=== PATIENT | male | born 1960 | race Caucasian/White ===

== ENCOUNTER → 2016-11-22 | Outpatient (CLI) | payer OTHER ==
[~2016-11-22] MED LIST: ACET-703 PO; APIX5TAB PO; ATOR40TA16 PO; ATOR40TA49 PO; EXTR500C PO; FISHCAP4 PO; LISI-360 PO; LISI10TA3 PO; OMEG5CAP; VITA-13; VITA1000 PO
[2016-11-22 10:19] LABS: HEMATOCRIT 46.1 % (39.0-51.0); MEAN CELL VOLUME 93.8 FL (80.0-100.0); MEAN CORPUSCULAR HEMOGLOBIN 32.7 PG (27.0-34.0); MEAN CORPUSCULAR HGB CONC 34.8 % (32.0-36.0); PLATELET COUNT 180 TH/MM3 (150-450); RED BLOOD COUNT 4.92 MIL/MM3 (4.50-5.90); RED CELL DISTRIBUTION WIDTH 13.5 % (11.6-17.2); REVIEW FLAG FINAL; WHITE BLOOD COUNT 8.1 TH/MM3 (4.0-11.0)
[2016-11-22 10:58] LABS: ALKALINE PHOSPHATASE 78 U/L (45-117); ALT (GPT) 34 U/L (12-78); ANION GAP 7 MEQ/L (5-15); AST (GOT) 19 U/L (15-37); BICARBONATE 28.8 MEQ/L (21.0-32.0); BLOOD UREA NITROGEN 13 MG/DL (7-18); CHLORIDE 105 MEQ/L (98-107); GLOMERULAR FILTRATION RATE 57 ML/MIN (>89); GLUCOSE,FASTING 89 MG/DL (74-99); HDL CHOLESTEROL 31.5 MG/DL (40.0-60.0); LDL CHOLESTEROL 98 MG/DL (0-99); POTASSIUM 3.9 MEQ/L (3.5-5.1); SODIUM (NA) 141 MEQ/L (136-145); TOTAL BILIRUBIN ADULT 0.9 MG/DL (0.2-1.0)
== END ==
LOC: CLAB 09:54
PROVIDERS: ATTEND Physician Assistant Medical
DX: E78.5 Hyperlipidemia, unspecified (principal); I10 Essential (primary) hypertension; D68.59 Other primary thrombophilia
CPT/HCPCS: 36415; 80053; 80061; 84443; 85027

== ENCOUNTER 2017-01-10 11:15 | Emergency (ER) | payer SELFPAY ==
[~2017-01-10 11:15] MED LIST changes: -ATOR40TA49 PO; -EXTR500C PO; -LISI-360 PO; -OMEG5CAP; -VITA-13
[2017-01-10 11:17] VITALS: BP 147/95; PULSE 90; RESP 16; TEMP 97.9; O2SAT 99
--- NOTE | 2017-01-10 11:23 | PD ---
Physical Exam Date Seen by Provider: Jan 10, 2017 Time Seen by Provider: 11:20 Narrative 56 yo male that presents to the ED for evaluation of medication refill for Eliquis. Ran out for about a month. Uses it for DVTs. Used to see patient assistance, pharmacy recommended he comes here. No other complains. Vitals sign stable. Patient awaiting bed placement. Data Data Last Documented VS Vital Signs Date Time Temp Pulse Resp B/P Pulse Ox O2 Delivery O2 Flow Rate FiO2 01/10/17 11:17 97.9 90 16 147/95 99 Room Air [facility] Medical Record Reviewed: Yes Supervised Visit with SCOTT: No Ketan Parson Jan 10, 2017 11:23
[2017-01-10] MEDS ORDERED: APIX5TAB PO (11:39)
--- NOTE | 2017-01-10 11:40 | PD ---
HPI Chief Complaint: Medication Refill Request Time Seen by Provider: 11:31 Travel History International Travel<30 days: No Contact w/Intl Traveler<30days: No Traveled to known affect area: No History of Present Illness HPI 56-year-old male presents to the emergency department requesting medication refill on Eliquis for history of DVT in his right leg. He has not taken his medication for one month and was not told to stop it. Patient has no medical complaints. He denies leg pain, leg edema, chest pain, shortness of breath, paresthesias or loss of sensation to extremities. His last primary care provider was Marilia Arnold. He does not have an established primary care provider at this time. No other medical complaints. No other modifying factors or associated signs and symptoms. PFSH Past Medical History Hx Anticoagulant Therapy: Yes (ELIQUIS) Anemia: Yes Arthritis: No Asthma: No Autoimmune Disease: No Anxiety: Yes Heart Rhythm Problems: No Cancer: No Cardiovascular Problems: Yes (DVT) Cerebral Palsy: No High Cholesterol: Yes Chest Pain: No Congestive Heart Failure: No COPD: No Cerebrovascular Accident: No Diabetes: No Diminished Hearing: No Deep Vein Thrombosis: Yes Endocrine: No Gastrointestinal Disorders: No GERD: No Glaucoma: No Headaches: No Hepatitis: No Hiatal Hernia: No Hypertension: Yes Kidney Stones: No Musculoskeletal: No Neurologic: No Psychiatric: No Reproductive: No Respiratory: No Immunizations Current: No Myocardial Infarction: No Renal Failure: No Seizures: Yes (NEW ONSET MAY 2009) Sleep Apnea: No Thyroid Disease: No Ulcer: No PNEUMOCCOCAL Vaccine (Year): 2 Past Surgical History AICD: No Pacemaker: No Other Surgery: No Social History Alcohol Use: Yes (1-2 mo) Tobacco Use: No Substance Use: No Allergies-Medications (Allergen,Severity, Reaction): Coded Allergies: No Known Allergies (Verified , 12/06/16) Reported Meds & Prescriptions Reported Meds & Active Scripts Active Eliquis (Apixaban) 5 Mg Tab 5 Mg PO BID Lisinopril 10 Mg Tab 10 Mg PO DAILY Atorvastatin (Atorvastatin Calcium) 40 Mg Tab 40 Mg PO HS Eliquis (Apixaban) 5 Mg Tab 5 Mg PO BID Reported Vitamin D-1000 (Cholecalciferol) 1,000 Unit Tab 1,000 Units PO DAILY Tylenol Extra Strength (Acetaminophen) 500 Mg Tab 1,000 Mg PO ONCE Fish Oil + D3 (Fish Oil-Cholecalciferol) 1,200-1,000 Mg-Unit Cap 2 Cap PO DAILY Review of Systems Except as stated in HPI: all other systems reviewed are Neg Physical Exam Narrative GENERAL: Well-nourished, well-developed male patient, in no acute distress SKIN: Warm and dry. HEAD: Atraumatic. Normocephalic. EYES: Pupils equal and round. No scleral icterus. No injection or drainage. ENT: Mucosa pink and moist. Airway patent. NECK: Trachea midline. CARDIOVASCULAR: Regular rate. RESPIRATORY: No accessory muscle use. GASTROINTESTINAL: Rounded. MUSCULOSKELETAL: No obvious deformities. No clubbing. No cyanosis. No edema. NEUROLOGICAL: Awake and alert. Oriented 3. No obvious cranial nerve deficits. Motor grossly within normal limits. Normal speech. PSYCHIATRIC: Appropriate mood and affect; insight and judgment normal. Data Data Last Documented VS Vital Signs Date Time Temp Pulse Resp B/P Pulse Ox O2 Delivery O2 Flow Rate FiO2 01/10/17 11:17 97.9 90 16 147/95 99 Room Air MDM Medical Decision Making Medical Screen Exam Complete: Yes Emergency Medical Condition: Yes Medical Record Reviewed: Yes Differential Diagnosis Medication refill, medical clearance, malingering Narrative Course 56-year-old male requesting medication refill on Eliquis for history of DVT. He has not taken the medication for one month. He does not have an established primary care provider. He says he lost his patient assistance. Eliquis prescribed for home. Patient provided an information sheet for [facility]. Patient verbalizes understanding and agreement with treatment plan. Patient is medically cleared and stable for discharge. Discussed reasons to return to the emergency department. Instructed patient to follow up with primary care provider. Patient agrees with treatment plan. The patients vital signs are stable and the patient is stable for outpatient follow-up and treatment. Patient discharged home, stable and in no acute distress. Diagnosis Primary Impression: Medication refill Referrals: Primary Care Physician Patient Instructions: General Instructions, Medication Refill, ED Additional Instructions: Take medication as prescribed Follow-up with primary care provider Return to the emergency department immediately with worsening of symptoms Med/Other Pt SpecificInfo: Prescription(s) given Scripts Apixaban (Eliquis)5 Mg Tab5 Mg PO BID #60 TAB Ref 0 Prov:Agueda Bustamante 01/10/17 Disposition: 01 DISCHARGE HOME Condition: Stable Agueda Bustamante Jan 10, 2017 11:39
== END 2017-01-10 12:33 | disposition home or self-care (01) ==
LOC: NEPK 11:15
DX: I10 Essential (primary) hypertension (principal); E78.00 Pure hypercholesterolemia, unspecified; Z76.0 Encounter for issue of repeat prescription; Z79.01 Long term (current) use of anticoagulants; Z86.718 Personal history of other venous thrombosis and embolism; Z86.2 Personal history of diseases of the blood and blood-forming organs and certain disorders involving the immune mechanism; Z86.59 Personal history of other mental and behavioral disorders; Z86.79 Personal history of other diseases of the circulatory system; Z86.69 Personal history of other diseases of the nervous system and sense organs
CPT/HCPCS: 99281

== ENCOUNTER 2017-08-21 22:17 | Emergency (ER) | payer SELFPAY ==
[~2017-08-21] VITALS: Ht 165.1 cm; Wt 84.0 kg
[2017-08-21 22:28] VITALS: BP 160/97; PULSE 119; RESP 20; TEMP 99.3; O2SAT 93
[2017-08-21] MEDS ORDERED: SODIUM CHLOR 0.9% 1000 ML INJ 1,000 ML IV SCH (22:50)
--- NOTE | 2017-08-21 22:53 | PD ---
HPI Chief Complaint: Seizure Time Seen by Provider: 22:50 Travel History International Travel<30 days: No Contact w/Intl Traveler<30days: No Traveled to known affect area: No History of Present Illness HPI 57-year-old male came to the emergency room with history of being found unresponsive on the floor. His sister is here with him. She does not live with him. Her mother lives with the patient. Mom called her to let her know that he was found unresponsive and sister called 911. Patient has history of seizure disorder but last seizure episode was many years ago. Patient is currently not taking any medications since he does not have insurance or primary care. He also has history of DVT and is supposed to be on blood thinners. He has not taking any of his medications in more than one month. Patient tells me that he has some headache currently. He thinks he may have had a seizure but he is not certain. Patient seems to have limited IQ. Patient denies doing any street drugs. He says he drinks alcohol once or twice a month. Last time he drank was 2 weeks ago. Vital signs are relatively stable. Patient currently is awake and answering questions. [facility] Past Medical History Narrative Medical list of his past medical, surgical, social and family history is reviewed from the nursing note. Hx Anticoagulant Therapy: Yes (ELIQUIS) Anemia: Yes Arthritis: No Asthma: No Autoimmune Disease: No Anxiety: Yes Heart Rhythm Problems: No Cancer: No Cardiovascular Problems: Yes (R LEG DVT X2 2005 AND 2008) Cerebral Palsy: No High Cholesterol: Yes Chest Pain: No Congestive Heart Failure: No COPD: No Cerebrovascular Accident: No Diabetes: No Diminished Hearing: No Deep Vein Thrombosis: Yes Endocrine: No Gastrointestinal Disorders: No GERD: No Glaucoma: No Headaches: No Hepatitis: No Hiatal Hernia: No Hypertension: Yes Kidney Stones: No Musculoskeletal: No Neurologic: No Psychiatric: No Reproductive: No Respiratory: No Immunizations Current: No Myocardial Infarction: No Renal Failure: No Seizures: Yes (NEW ONSET MAY 2009) Sleep Apnea: No Thyroid Disease: No Ulcer: No Tetanus Vaccination: Unknown Influenza Vaccination: No PNEUMOCCOCAL Vaccine (Year): 2 Past Surgical History Surgical History: No Previous Surgery AICD: No Pacemaker: No Other Surgery: No Social History Alcohol Use: Yes (OCCASIONALLY 1-2 PER MONTH) Tobacco Use: No Substance Use: No Allergies-Medications (Allergen,Severity, Reaction): Coded Allergies: No Known Allergies (Verified Adverse Reaction, Unknown, 08/21/17) Comments No known drug allergies. Reported Meds & Prescriptions Reported Meds & Active Scripts Active Lopressor (Metoprolol Tartrate) 50 Mg Tab 50 Mg PO DAILY Keppra (Levetiracetam) 500 Mg Tab 500 Mg PO BID Eliquis (Apixaban) 5 Mg Tab 5 Mg PO BID Lisinopril 10 Mg Tab 10 Mg PO DAILY Atorvastatin (Atorvastatin Calcium) 40 Mg Tab 40 Mg PO HS Reported Vitamin D-1000 (Cholecalciferol) 1,000 Unit Tab 1,000 Units PO DAILY Fish Oil + D3 (Fish Oil-Cholecalciferol) 1,200-1,000 Mg-Unit Cap 2 Cap PO DAILY Narrative Medication List of his home medications reviewed from the nursing note. Review of Systems Except as stated in HPI: all other systems reviewed are Neg Neurologic: Positive: Headache Physical Exam Narrative GENERAL: Awake, alert, no obvious distress SKIN: Focused skin assessment warm/dry. HEAD: Atraumatic. Normocephalic. EYES: Pupils equal and round. No scleral icterus. No injection or drainage. ENT: No nasal bleeding or discharge. Mucous membranes pink and moist. NECK: Trachea midline. No JVD. CARDIOVASCULAR: Regular rate and rhythm. No murmur appreciated. RESPIRATORY: No accessory muscle use. Clear to auscultation. Breath sounds equal bilaterally. GASTROINTESTINAL: Abdomen soft, non-tender, nondistended. Hepatic and splenic margins not palpable. MUSCULOSKELETAL: No obvious deformities. No clubbing. No cyanosis. No edema. NEUROLOGICAL: Awake and alert. No obvious cranial nerve deficits. Motor grossly within normal limits. Normal speech. PSYCHIATRIC: Appropriate mood and affect; insight and judgment normal. Data Data Last Documented VS Orders Orders Electrocardiogram (08/21/17 22:50) Complete Blood Count With Diff (08/21/17 22:50) Comprehensive Metabolic Panel (08/21/17 22:50) Creatine Kinase (Cpk) (08/21/17 22:50) Prothrombin Time / Inr (Pt) (08/21/17 22:50) Troponin I (08/21/17 22:50) Thyroid Stimulating Hormone (08/21/17 22:50) Ct Brain W/O Iv Contrast(Rout) (08/21/17 22:50) Blood Glucose (08/21/17 22:50) Ecg Monitoring (08/21/17 22:50) Iv Access Insert/Monitor (08/21/17 22:50) Oximetry (08/21/17 22:50) Sodium Chloride 0.9% Flush (Ns Flush) (08/21/17 23:00) Sodium Chlor 0.9% 1000 Ml Inj (Ns 1000 M (08/21/17 22:50) Alcohol (Ethanol) (08/21/17 22:50) ^ Seizure Precautions (08/21/17 22:55) Levetiracetam (Keppra) (08/22/17 00:00) Metoprolol Tartrate (Lopressor) (08/22/17 00:15) Ed Discharge Order (08/22/17 00:09) Labs Laboratory Tests Test 08/21/17 22:55 White Blood Count 13.0 TH/MM3 Red Blood Count 4.82 MIL/MM3 Hemoglobin 15.8 GM/DL Hematocrit 45.7 % Mean Corpuscular Volume 94.9 FL Mean Corpuscular Hemoglobin 32.9 PG Mean Corpuscular Hemoglobin Concent 34.7 % Red Cell Distribution Width 12.8 % Platelet Count 190 TH/MM3 Mean Platelet Volume 7.5 FL Neutrophils (%) (Auto) 72.0 % Lymphocytes (%) (Auto) 19.0 % Monocytes (%) (Auto) 6.8 % Eosinophils (%) (Auto) 1.2 % Basophils (%) (Auto) 1.0 % Neutrophils # (Auto) 9.3 TH/MM3 Lymphocytes # (Auto) 2.5 TH/MM3 Monocytes # (Auto) 0.9 TH/MM3 Eosinophils # (Auto) 0.2 TH/MM3 Basophils # (Auto) 0.1 TH/MM3 CBC Comment DIFF FINAL Differential Comment Prothrombin Time 10.8 SEC Prothromb Time International Ratio 1.1 RATIO Blood Urea Nitrogen 20 MG/DL Creatinine 1.63 MG/DL Random Glucose 91 MG/DL Total Protein 7.5 GM/DL Albumin 3.5 GM/DL Calcium Level 9.2 MG/DL Alkaline Phosphatase 81 U/L Aspartate Amino Transf (AST/SGOT) 14 U/L Alanine Aminotransferase (ALT/SGPT) 22 U/L Total Bilirubin 0.5 MG/DL Sodium Level 138 MEQ/L Potassium Level 3.4 MEQ/L Chloride Level 102 MEQ/L Carbon Dioxide Level 26.7 MEQ/L Anion Gap 9 MEQ/L Estimat Glomerular Filtration Rate 44 ML/MIN Total Creatine Kinase 210 U/L Troponin I LESS THAN 0.02 NG/ML Thyroid Stimulating Hormone 3rd Gen 1.440 uIU/ML Ethyl Alcohol Level LESS THAN 3 MG/DL MDM Medical Decision Making Medical Screen Exam Complete: Yes Emergency Medical Condition: Yes Medical Record Reviewed: Yes Interpretation(s) Twelve-lead EKG was reviewed by me. Normal sinus rhythm, normal axis, tachycardia, first-degree AV block, right bundle branch block, low voltage. Heart rate of 108 bpm. Differential Diagnosis Seizure, syncopal episode, intracranial bleed, electrolyte abnormality Narrative Course 12:02 AM blood test results of back. Patient has slight leukocytosis. He has mild renal insufficiency. Rest of his blood test results are within acceptable limits. CT scan of his head was suggestive of encephalomalacia but otherwise no acute changes. I've given him a dose of by mouth Keppra and I will discharge him home on that. Procedures EKG Prior to Arrival: No Diagnosis Primary Impression: seizure versus syncope Additional Impressions: Seizure disorder seizure disorder Renal insufficiency Referrals: Primary Care Physician Additional Instructions: Please return to the ER if condition worsens or any other new concerns. Otherwise feels the prescription and start taking the medication as per the direction. Follow-up with primary care. He should not be driving until you have clearance from your primary care. Med/Other Pt SpecificInfo: Prescription(s) given Scripts Metoprolol Tartrate (Lopressor) 50 Mg Tab 50 MG PO DAILY, #30 TAB 0 Refills Prov: Berto Darby MD 08/22/17 Levetiracetam (Keppra) 500 Mg Tab 500 MG PO BID for Control Seizures, #60 TAB 0 Refills Prov: Berto Darby MD 08/22/17 Disposition: DISCHARGE HOME Condition: Stable Berto Darby MD Aug 21, 2017 22:53
[2017-08-21] MEDS ORDERED: SODIUM CHLORIDE 0.9% FLUSH 10 ML FLUSH IV FLUSH PRN (23:00)
[2017-08-21 23:18] LABS: AUTOMATED NEUTROPHIL # 9.3 TH/MM3 (1.8-7.7); BASOPHIL # 0.1 TH/MM3 (0-0.2); EOSINOPHIL # 0.2 TH/MM3 (0-0.4); EOSINOPHIL % 1.2 % (0.0-4.0); HEMATOCRIT 45.7 % (39.0-51.0); HEMO FLAGS DIFF FINAL; LYMPHOCYTE # 2.5 TH/MM3 (1.0-4.8); MEAN CELL VOLUME 94.9 FL (80.0-100.0); MEAN CORPUSCULAR HEMOGLOBIN 32.9 PG (27.0-34.0); MEAN CORPUSCULAR HGB CONC 34.7 % (32.0-36.0); MONO % 6.8 % (0.0-8.0); PLATELET COUNT 190 TH/MM3 (150-450); RED BLOOD COUNT 4.82 MIL/MM3 (4.50-5.90); RED CELL DISTRIBUTION WIDTH 12.8 % (11.6-17.2)
[2017-08-21 23:29] LABS: INTERNATIONAL NORMALIZED RATIO 1.1 RATIO; PROTHROMBIN TIME - PATIENT 10.8 SEC (9.8-11.6)
[2017-08-21 23:33] LABS: ANION GAP 9 MEQ/L (5-15); AST (GOT) 14 U/L (15-37); BICARBONATE 26.7 MEQ/L (21.0-32.0); BLOOD UREA NITROGEN 20 MG/DL (7-18); CHLORIDE 102 MEQ/L (98-107); GLOMERULAR FILTRATION RATE 44 ML/MIN (>89); POTASSIUM 3.4 MEQ/L (3.5-5.1); SODIUM (NA) 138 MEQ/L (136-145)
[2017-08-21 23:34] LABS: ALT (GPT) 22 U/L (12-78)
[2017-08-21 23:44] LABS: ALKALINE PHOSPHATASE 81 U/L (45-117); CREATINE KINASE 210 U/L (39-308); TOTAL BILIRUBIN ADULT 0.5 MG/DL (0.2-1.0)
[2017-08-21 23:45] LABS: ALCOHOL LESS THAN 3 MG/DL (0-5)
--- NOTE | 2017-08-21 23:46 | RADRPT ---
EXAM DATE/TIME: 08/21/2017 23:37 [place] COMPARISON: No previous studies available for comparison. INDICATIONS : Altered mental status. Seizure. RADIATION DOSE: 40.46 CTDIvol (mGy) MEDICAL HISTORY : Hypertension. SURGICAL HISTORY : None. ENCOUNTER: Initial ACUITY: 1 day PAIN SCALE: 0/10 LOCATION: cranial TECHNIQUE: Multiple contiguous axial images were obtained of the head. Using automated exposure control and adj ustment of the mA and/or kV according to patient size, radiation dose was kept as low as reasonably a chievable to obtain optimal diagnostic quality images. DICOM format image data is available electro nically for review and comparison. FINDINGS: There is encephalomalacia identified in both frontal lobes, the bilateral parietal lobes, and right t emporal lobe. The osseous structures are intact. There are no signs of intracranial hemorrhage, mass, or acute infarct. CONCLUSION: Bilateral areas of encephalomalacia are identified without definite evidence for acute process. Gadiel Turner MD on August 21, 2017 at 23:44 Board Certified Radiologist. This report was verified electronically.
[2017-08-22] MEDS ORDERED: levETIRAcetam 500 MG TAB PO ONE
[2017-08-22] MEDS ORDERED: LEVE500 PO (00:04)
[2017-08-22] MEDS ORDERED: METO-309 PO (00:08)
[2017-08-22] MEDS ORDERED: METOPROLOL TARTRATE 50 MG TAB PO ONE (00:15)
[2017-08-22 00:16] VITALS: BP 153/95
[2017-08-22 00:34] VITALS: BP 153/95; PULSE 102; RESP 16; O2SAT 94
--- NOTE | 2017-08-22 07:58 | EKG ---
Date Performed: 08/21/2017 Time Performed: 23:20:06 PTAGE: 57 years EKG: SINUS TACHYCARDIA WITH FIRST DEGREE AV BLOCK POSSIBLE LEFT ATRIAL ENLARGEMENT INDETERMINATE AXIS LOW QRS VOLTAGE IN PRECORDIAL LEADS POSSIBLE RIGHT VENTRICULAR CONDUCTION DELAY NONSPECIFIC ST ELEVATION ABNORMAL ECG No significant change from prior electrocardiogram. PREVIOUS TRACING : 06/05/2009 16.24 DOCTOR: Gucci Robles Interpretating Date/Time 08/22/2017 07:56:14
== END 2017-08-22 01:26 | disposition home or self-care (01) ==
LOC: NEPC 22:17
DX: G40.909 Epilepsy, unspecified, not intractable, without status epilepticus (principal); R55 Syncope and collapse; N28.9 Disorder of kidney and ureter, unspecified; E78.00 Pure hypercholesterolemia, unspecified; I10 Essential (primary) hypertension; R94.31 Abnormal electrocardiogram [ECG] [EKG]; Z86.718 Personal history of other venous thrombosis and embolism; Z91.19 Patient's noncompliance with other medical treatment and regimen
CPT/HCPCS: 70450; 80053; 80307; 82550; 84443; 84484; 85025; 85610; 93005; 96360; 99285; J7030

== ENCOUNTER 2018-07-31 12:06 | Observation (INO) ==
[2018-07-31] MEDS ORDERED: Sod Chloride 0.9% Inj 1,000 ML IV.SIG ONE (12:12)
[2018-07-31 12:47] LABS: Baso # (Auto) 0.1 th/mm3 (0.0-0.2); Baso % (Auto) 0.8 % (0.0-2.0); Eos # (Auto) 0.3 th/mm3 (0.0-0.4); Hematocrit 49.8 % (39.0-51.0); Lymph # (Auto) 2.5 th/mm3 (1.0-4.8); Lymph % (Auto) 26.7 % (9.0-44.0); Mean Corpuscular HGB Conc 34.1 % (32.0-36.0); Mean Corpuscular Hemoglobin 33.5 pg (27.0-34.0); Mean Platelet Volume 7.6 fL (7.0-11.0); Mono # (Auto) 0.5 th/mm3 (0.0-0.9); Mono % (Auto) 5.3 % (0.0-8.0); Neut # (Auto) 5.9 th/mm3 (1.8-7.7); Neut % (Auto) 64.2 % (16.0-70.0); Platelet Count 213 th/mm3 (150-450); Red Blood Count 5.08 mil/mm3 (4.50-5.90); Red Cell Distribution Width 12.2 % (11.6-17.2); White Blood Count 9.3 th/mm3 (4.0-11.0)
[2018-07-31 12:52] LABS: Chloride 106 meq/L (98-107); Potassium 3.9 meq/L (3.5-5.1); Sodium 142 meq/L (136-145)
[2018-07-31 12:54] LABS: Calcium 8.9 mg/dL (8.5-10.1)
[2018-07-31 12:55] LABS: Anion Gap 11 meq/L (5-15); Blood Urea Nitrogen 12 mg/dL (7-18); Carbon Dioxide 25.2 meq/L (21.0-32.0); Glucose,Random 136 mg/dL (74-106); Magnesium 1.7 mg/dL (1.5-2.5)
[2018-07-31 12:58] LABS: Glomerular Filtration Rate 53 mL/min (>89)
--- NOTE | 2018-07-31 12:59 | ED ---
HPI General Chief Complaint: Altered Mental Status Stated Complaint: EVAC/ ALTERED MENTAL Time Seen by Provider: 07/31/18 12:10 Source: patient and EMS Mode of arrival: EMS Limitations: no limitations History of Present Illness HPI Narrative: The patient is 57 years old. He has a history of epilepsy. He reports strict compliance with antiepileptics. He does not know the name of the medication that he takes for seizures. He arrives by EMS. EMS reports that the patient, who lives at home with his mother, was heard to have made a noise in his bedroom by the mother who called EMS. EMS reports normal vital signs on scene. No fecal or urinary incontinence or oropharyngeal trauma reported. Some confusion observed in route to the ER. Patient reports this morning was a normal morning for him however does not recall losing consciousness or events that transpired prior to ED arrival by EMS. Patient was seen here about 1 year prior following a seizure and was found to have essentially unremarkable workup and was discharged home on Keppra. At that time Keppra was listed on his EMR. Related Data Home Medications Medication Instructions Recorded Confirmed apixaban [Eliquis] 2.5 mg PO BID 07/31/18 07/31/18 atorvastatin 20 mg PO DAILY 07/31/18 07/31/18 lisinopril 10 mg PO DAILY 07/31/18 07/31/18 metoprolol tartrate 25 mg PO BID 07/31/18 07/31/18 Allergies Allergy/AdvReac Type Severity Reaction Status Date / Time No Known Allergies Allergy Verified 07/31/18 13:10 Review of Systems ROS: all other systems reviewed are negative PMFSH Medical History Medical History High cholesterol (Acute) History of DVT of lower extremity (Acute) Hypertension (Acute) Seizure disorder (Acute) Social History Social History Substance History: No History of Abuse Second Hand Smoke Exposure: No Smoking Status: Former smoker Tobacco Type: Cigarettes How Often Do You Have a Drink Containing Alcohol: 2 to 3 times a week Recent Travel in [facility] within the Last 8 Weeks: No Recent Out of Country Travel within the Last 8 Weeks: No Immunization History Tetanus Immunization: Unsure Exam Narrative Exam Narrative: GENERAL: 57-year-old male well-nourished well-developed awake and alert SKIN: Focused skin assessment warm/dry. HEAD: Atraumatic. Normocephalic. EYES: Pupils equal and round. No scleral icterus. No injection or drainage. ENT: No nasal bleeding or discharge. Mucous membranes pink and moist. NECK: Trachea midline. No JVD. CARDIOVASCULAR: Regular rate and rhythm. No murmur appreciated. RESPIRATORY: No accessory muscle use. Clear to auscultation. Breath sounds equal bilaterally. GASTROINTESTINAL: Abdomen soft, non-tender, nondistended. Hepatic and splenic margins not palpable. MUSCULOSKELETAL: No obvious deformities. No clubbing. No cyanosis. No edema. NEUROLOGICAL: Awake and alert. No obvious cranial nerve deficits. Motor grossly within normal limits. Speech is not slurred however the patient speaks words very slowly. PSYCHIATRIC: Appropriate mood and affect; insight and judgment normal. Course Initial Documented Vital Signs Temperature 98.5 F 07/31/18 12:09 Pulse Rate 98 H 07/31/18 12:09 Respiratory Rate 18 07/31/18 12:09 Blood Pressure 165/100 H 07/31/18 12:09 Pulse Oximetry 95 07/31/18 12:09 Last Documented Vital Signs Temperature 97.8 F 08/01/18 08:00 Pulse Rate 63 08/01/18 08:59 Respiratory Rate 15 08/01/18 08:00 Blood Pressure 125/79 08/01/18 08:00 Pulse Oximetry 95 08/01/18 11:49 Medical Decision Making MDM Narrative Medical decision making narrative: Patient had a questionable seizure episode. He is noncompliant with medications and has not been since November. Patient has no insurance. The patient also has poor memory and understanding of the need to take medications. Case discussed with case management. [place] [facility] as an outpatient and will be necessary. Discussed with hospitalist for admission/ obs. Work up today is grossly unremarkable. Presentation considered most likely to have been seizure event. Medical Screen Exam Complete: Yes Emergency Medical Condition: Yes Differential Diagnosis Differential Diagnosis: seizure, syncope, arrhythmia, PE, ICH Lab Data Result diagrams: 08/01/18 06:38 08/01/18 06:38 Lab Results 07/31/18 07/31/18 07/31/18 Range/Units 12:25 12:25 13:07 CBC w Diff Auto diff final WBC 9.3 (4.0-11.0) th/mm3 RBC 5.08 (4.50-5.90) mil/mm3 Hgb 17.0 (13.0-17.0) gm/dL Hct 49.8 (39.0-51.0) % MCV 98.0 (80.0-100.0) fL MCH 33.5 (27.0-34.0) pg MCHC 34.1 (32.0-36.0) % RDW 12.2 (11.6-17.2) % Plt Count 213 (150-450) th/mm3 MPV 7.6 (7.0-11.0) fL Neut % (Auto) 64.2 (16.0-70.0) % Lymph % (Auto) 26.7 (9.0-44.0) % [place] % (Auto) 5.3 (0.0-8.0) % Eos % (Auto) 3.0 (0.0-4.0) % Baso % (Auto) 0.8 (0.0-2.0) % Neut # (Auto) 5.9 (1.8-7.7) th/mm3 Lymph # (Auto) 2.5 (1.0-4.8) th/mm3 [place] # (Auto) 0.5 (0.0-0.9) th/mm3 Eos # (Auto) 0.3 (0.0-0.4) th/mm3 Baso # (Auto) 0.1 (0.0-0.2) th/mm3 WBC Differential . Differential Comment . Sodium 142 (136-145) meq/L Potassium 3.9 (3.5-5.1) meq/L Chloride 106 (98-107) meq/L Carbon Dioxide 25.2 (21.0-32.0) meq/L Anion Gap 11 (5-15) meq/L BUN 12 (7-18) mg/dL Creatinine 1.40 H (0.60-1.30) mg/dL Estimated GFR 53 L (>89) mL/min Random Glucose 136 H (74-106) mg/dL Calcium 8.9 (8.5-10.1) mg/dL Magnesium 1.7 (1.5-2.5) mg/dL Total Creatine Kinase 109 (39-308) U/L Troponin I Less than 0.02 L (0.02-0.05) ng/mL Urine Opiates Screen Neg (Neg) Ur Barbiturates Screen Neg (Neg) Ur Amphetamines Screen Neg (Neg) U Benzodiazepines Scrn Neg (Neg) Urine Cocaine Screen Neg (Neg) U Cannabinoids Screen Pos H (Neg) Serum Alcohol Less than 3 (0-5) mg/dL 08/01/18 08/01/18 Range/Units 06:38 06:38 CBC w Diff Auto diff final WBC 11.1 H (4.0-11.0) th/mm3 RBC 4.30 L (4.50-5.90) mil/mm3 Hgb 14.6 D (13.0-17.0) gm/dL Hct 42.1 (39.0-51.0) % MCV 97.9 (80.0-100.0) fL MCH 33.9 (27.0-34.0) pg MCHC 34.7 (32.0-36.0) % RDW 12.4 (11.6-17.2) % Plt Count 165 (150-450) th/mm3 MPV 7.7 (7.0-11.0) fL Neut % (Auto) 63.9 (16.0-70.0) % Lymph % (Auto) 27.4 (9.0-44.0) % [place] % (Auto) 6.5 (0.0-8.0) % Eos % (Auto) 1.3 (0.0-4.0) % Baso % (Auto) 0.9 (0.0-2.0) % Neut # (Auto) 7.2 (1.8-7.7) th/mm3 Lymph # (Auto) 3.0 (1.0-4.8) th/mm3 [place] # (Auto) 0.7 (0.0-0.9) th/mm3 Eos # (Auto) 0.1 (0.0-0.4) th/mm3 Baso # (Auto) 0.1 (0.0-0.2) th/mm3 WBC Differential . Differential Comment . Sodium 144 (136-145) meq/L Potassium 3.8 (3.5-5.1) meq/L Chloride 110 H (98-107) meq/L Carbon Dioxide 27.0 (21.0-32.0) meq/L Anion Gap 7 (5-15) meq/L BUN 11 (7-18) mg/dL Creatinine 1.10 (0.60-1.30) mg/dL Estimated GFR 69 L (>89) mL/min Random Glucose 86 (74-106) mg/dL Calcium 8.2 L (8.5-10.1) mg/dL Magnesium 1.6 (1.5-2.5) mg/dL Total Creatine Kinase (39-308) U/L Troponin I (0.02-0.05) ng/mL Urine Opiates Screen (Neg) Ur Barbiturates Screen (Neg) Ur Amphetamines Screen (Neg) U Benzodiazepines Scrn (Neg) Urine Cocaine Screen (Neg) U Cannabinoids Screen (Neg) Serum Alcohol (0-5) mg/dL Imaging Data Radiologist's impression: Carotid Doppler Study 07/31/18 00:00 CONCLUSION: No evidence of flow-limiting carotid stenosis. Head CT 07/31/18 12:12 CONCLUSION: 1. 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 Negative for acute process . Discharge Plan Discharge Disposition Patient Disposition: 30 Still Patient Discharge Condition Condition: Stable Physicians Team ED Provider: Boby Connors Primary Care Provider: Primary Care Tee,Kristen Attending Provider: Ida Macario Other Providers: García Vincent Status ED Status: Left Department Discharge Information Discharge Date/Time: 07/31/18 15:20
--- NOTE | 2018-07-31 13:03 | CT ---
EXAM DATE: 07/31/2018 12:37 PM EST AGE/SEX: 57 years / Male INDICATIONS: Seizure. CLINICAL DATA: This is the patient's initial encounter. Patient reports that signs and symptoms have been present for 1 day and indicates a pain score of 0/10. MEDICAL/SURGICAL HISTORY: Seizures. None. RADIATION DOSE: 57.04 CTDI (mGy) COMPARISON: [facility], CT BRAIN W/O CONTRAST, 08/21/2017. . TECHNIQUE: CT of the head without contrast. Using automated exposure control and adjustment of the mA and/or kV according to patient size, radiation dose was kept as low as reasonably achievable to ob tain optimal diagnostic quality images. DICOM format image data is available electronically for revi ew and comparison. FINDINGS: Cerebrum: Old ischemic or posttraumatic areas of porencephaly are seen in both frontal regions large r on the left than the right. Similar changes are seen in the left occipital region. There is no parenchymal hemorrhage. There are no extra-axial fluid collections appreciated. Posterior Fossa: The cerebellum and brainstem are intact. The 4th ventricle is midline. The cerebe llopontine angle is unremarkable. Extracranial: The visualized portion of the orbits is intact. Skull: The calvaria is intact. No evidence of skull fracture. CONCLUSION: 1. 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 Negative for acute process . Electronically signed by: Yakov Johnson MD 07/31/2018 1:02 PM EST
[2018-07-31 13:27] LABS: Amphetamine Screen,Urine Neg (Neg); Barbiturate Screen,Urine Neg (Neg); Cannabinoid Screen,Urine Pos (Neg); Cocaine Screen,Urine Neg (Neg)
[2018-07-31 13:55] LABS: Opiate Screen,Urine Neg (Neg)
--- NOTE | 2018-07-31 15:24 | P.HPIM ---
History of Present Illness Primary Care Physician: No Primary Care Physician History of Present Illness: This patient is a 57-year-old male with seizure disorder currently not on any medications, hypertension, dyslipidemia. Patient also has a history of 2 DVTs as per documentation and is currently on Eliquis. He says that he takes 3 medications daily including his beta-steph, statin, and Eliquis. He was brought into the emergency department today after his mother found him down in his room. She was not sure if he had a seizure or possibly syncopal event. According to the patient's nephew he had lost consciousness and woke up after about a minute. The patient does not recall the episode. He denies any chest pain, no palpitations, no shortness of breath prior to the episode. He says his last seizure was approximately 1 year ago. The patient is a very poor historian, most of the history was given to me by the patient's nephew who is at bedside with the patient. 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 Surgical history patient denies any history of surgeries. Family history no history of seizure disorder in the family. Hypertension runs in the family Social history patient has extensive marijuana smoking history. He also has a history of tobacco smoking. Denies any history of drug use. Drinks alcohol socially. Review of Systems All other systems reviewed negative except as stated in [facility] - History History Provided By: Patient, Medical Record, Dip Tanker / EMT - Medical History Medical History: Medical History (Last Updated 07/31/18 @ 14:58 by Neda Middleton RN) High cholesterol History of DVT of lower extremity Hypertension Seizure disorder - Tobacco History Second Hand Smoke Exposure: No Tobacco Use In Past 30 Days: No Smoking Status: Former smoker Tobacco Type: Cigarettes - Alcohol History How Often Do You Have a Drink Containing Alcohol: 2 to 4 times a month - Substance Use History Substance History: No History of Abuse - Travel History Recent Travel in the [place] Within the Last 8 Weeks: No Recent Travel Out of the Country Within the Last 8 Weeks: No - Immunization History Tetanus Immunization: Unsure Medications and Allergies Active Medications: Active Medications Apixaban (Eliquis) 2.5 mg PO BID ALE Atorvastatin Calcium (Lipitor) 20 mg PO HS ALE Sodium Chloride (Ns Inj) 1,000 mls @ 100 mls/hr IV.CONT .Q10H ALE Metoprolol Tartrate (Lopressor) 25 mg PO BID ALE Sodium Chloride (Ns Flush) 2 ml IV.FLUSH PRN PRN PRN Reason: FLUSH AFTER USING IV ACCESS Last Admin: 07/31/18 13:28 Dose: 2 ml Allergies Allergy/AdvReac Type Severity Reaction Status Date / Time No Known Allergies Allergy Verified 07/31/18 13:10 Home Medications Medication Instructions Recorded Confirmed Type apixaban [Eliquis] 2.5 mg PO BID 07/31/18 07/31/18 History atorvastatin 20 mg PO DAILY 07/31/18 07/31/18 History lisinopril 10 mg PO DAILY 07/31/18 07/31/18 History metoprolol tartrate 25 mg PO BID 07/31/18 07/31/18 History Exam Vital signs: Vital Signs 07/31/18 12:09 07/31/18 12:12 07/31/18 12:20 Temperature 98.5 F Pulse Rate 98 H 98 H Respiratory Rate 18 Blood Pressure 165/100 H Pulse Oximetry 95 95 Intake & Output 07/30/18 07/31/18 07/31/18 18:59 06:59 18:59 Intake Total 1000 / 1000 Balance 1000 / 1000 Weight 84 kg Intake: IV 1000 / 1000 NS Inj 1,000 ML @ Wide Open IV. 1000 / 1000 SIG BOLUS ONE Rx#:[id number] Narrative: General patient in no acute distress HEENT extraocular movements are intact, clear oropharyngeal mucosa, no JVD Cardiovascular S1-S2 audible, no murmurs rubs or gallops, no chest pain Respiratory clear to auscultation bilaterally Abdomen soft, nontender, nondistended, normal bowel sounds Extremities no edema 2+ distal pulses in bilateral upper and lower extremities Neuro patient moves all 4 extremities, strength is intact, sensation is intact bilateral upper and lower extremities. Cerebellar signs are intact. No neurological deficits noted on my physical examination. Results - Labs CBC & Chem 7: 07/31/18 12:25 07/31/18 12:25 Labs: Short CBC 07/31/18 Range/Units 12:25 WBC 9.3 (4.0-11.0) th/mm3 Hgb 17.0 (13.0-17.0) gm/dL Hct 49.8 (39.0-51.0) % Plt Count 213 (150-450) th/mm3 BMP 07/31/18 12:25 Sodium 142 Potassium 3.9 Chloride 106 Carbon Dioxide 25.2 BUN 12 Creatinine 1.40 H Calcium 8.9 - Imaging Impressions Head CT 07/31/18 12:12 CONCLUSION: 1. 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 Negative for acute process . Caprini VTE Risk Assessment Caprini VTE Risk Assessment: Moderate/High Risk (score >= 2) (Patient currently on Eliquis.) Caprini Risk Assessment Model: Point Value = 1 Point Value = 2 Point Value = 3 Point Value = 5 Age 41-60 Minor surgery BMI > 25 kg/m2 Swollen legs Varicose veins or History of unexplained or recurrent spontaneous Oral contraceptives or hormone replacement Sepsis (< 1 month) Serious lung disease, including pneumonia (< 1 month) Abnormal pulmonary function Acute myocardial infarction Congestive heart failure (< 1 month) History of inflammatory bowel disease Medical patient at bed rest Age 61-74 Arthroscopic surgery Major open surgery (> 45 min) Laparoscopic surgery (> 45 min) Malignancy Confined to bed (> 72 hours) Immobilizing plaster cast Central venous access Age >= 75 History of VTE Family history of VTE Factor V Leiden Prothrombin [id number] Lupus anticoagulant Anticardiolipin antibodies Elevated serum homocysteine Heparin-induced thrombocytopenia Other congenital or acquired thrombophilia Stroke (< 1 month) Elective arthroplasty Hip, pelvis, or leg fracture Acute spinal cord injury (< 1 month) Prophylaxis Regimen: Total Risk Factor Score Risk Level Prophylaxis Regimen 0-1 Low Early ambulation 2 Moderate Order ONE of the following: *Sequential Compression Device (SCD) *Heparin 5000 units SQ BID 3-4 Higher Order ONE of the following medications: *Heparin 5000 units SQ TID *Enoxaparin/Lovenox 40 mg SQ daily (WT < 150 kg, CrCl > 30 mL/min) *Enoxaparin/Lovenox 30 mg SQ daily (WT < 150 kg, CrCl > 10-29 mL/min) *Enoxaparin/Lovenox 30 mg SQ BID (WT < 150 kg, CrCl > 30 mL/min) AND/OR *Sequential Compression Device (SCD) 5 or more Highest Order ONE of the following medications: *Heparin 5000 units SQ TID (Preferred with Epidurals) *Enoxaparin/Lovenox 40 mg SQ daily (WT < 150 kg, CrCl > 30 mL/min) *Enoxaparin/Lovenox 30 mg SQ daily (WT < 150 kg, CrCl > 10-29 mL/min) *Enoxaparin/Lovenox 30 mg SQ BID (WT < 150 kg, CrCl > 30 mL/min) AND *Sequential Compression Device (SCD) Assessment and Plan - Plan This patient is a 57-year-old male with seizure disorder currently not on any medications, hypertension, dyslipidemia. Patient also has a history of 2 DVTs as per documentation and is currently on Eliquis. He says that he takes 3 medications daily including his beta-steph, statin, and Eliquis. He was brought into the emergency department today after his mother found him down in his room. She was not sure if he had a seizure or possibly syncopal event. According to the patient's nephew he had lost consciousness and woke up after about a minute. The patient does not recall the episode. He denies any chest pain, no palpitations, no shortness of breath prior to the episode. He says his last seizure was approximately 1 year ago. The patient is a very poor historian, most of the history was given to me by the patient's nephew who is at bedside with the patient. 1. Possible syncopal episode, concern for possible seizure. Patient presented with the findings mentioned above. A CT scan of the head was done which showed areas of porencephaly. No other acute findings, no bleed. It is unclear if the patient had a seizure at home. There is no clear documentation of seizure-like activity, and the patient does not remember the episode. We placed in observation, will monitor the patient on telemetry. Troponin ordered, CPK ordered, EKG will be followed up. On telemetry it appears the patient is in normal sinus rhythm with a heart rate in the 90s An EEG has been ordered. Neurology consulted to evaluate the patient as the patient has not been on antiseizure medications for nearly a year. Carotid ultrasound ordered and is currently pending. Follow-up 2D echo. 2. Elevated creatinine possibly CKD Patient is elevated serum creatinine of 1.4. Will be started on IV fluids. I will follow-up in a.m. renal panel. 3. Hypertension Patient will be continued on metoprolol. We will continue monitor the patient' s blood pressure and adjust his medications as needed. 4. Dyslipidemia Continue statin 5. History of DVTs. Continue Eliquis. No signs of bleeding, CT scan of the head is negative for any acute bleed. . DVT prophylaxis, patient is on Eliquis.
[2018-07-31 15:37] LABS: Creatine Kinase 109 U/L (39-308)
[2018-07-31] MEDS: Sod Chloride 0.9% Inj 1,000 ML IV.CONT SCH (15:47)
--- NOTE | 2018-07-31 18:22 | US ---
EXAM DATE: 07/31/2018 6:05 PM EST AGE/SEX: 57 years / Male INDICATIONS: Syncope. CLINICAL DATA: This is the patient's initial encounter. Patient reports that signs and symptoms have been present for 1 day and indicates a pain score of 0/10. MEDICAL/SURGICAL HISTORY: Hypercholesterolemia. Hypertension. Deep venous thrombosis. Seizur e disorder. None. COMPARISON: No prior exams available for comparison. VELOCITY PARAMETERS: ICA/CCA Ratio: Right 1.1 , Left 0.6 ICA: Right 105 cm/sec, Left 52 cm/sec CCA: Right 98 cm/sec, Left 94 cm/sec ECA: Right 75 cm/sec, Left 83 cm/sec Vertebral: Right 34 cm/sec antegrade, Left 40 cm/sec antegrade FINDINGS: Right Carotid: No significant plaque is visualized.The waveforms are within normal limits. Left Carotid: No significant plaque is visualized. The waveforms are within normal limits. Other: None. CONCLUSION: No evidence of flow-limiting carotid stenosis. Electronically signed by: Charles Choi MD 07/31/2018 6:20 PM EST
[2018-07-31] MEDS: Metoprolol Tartrate 25 MG Tablet PO SCH (20:34)
[2018-08-01] MEDS: Sod Chloride 0.9% Inj 1,000 ML IV.CONT SCH ×3 (01:57→22:25)
[2018-08-01 07:20] LABS: Baso # (Auto) 0.1 th/mm3 (0.0-0.2); Baso % (Auto) 0.9 % (0.0-2.0); Eos # (Auto) 0.1 th/mm3 (0.0-0.4); Eos % (Auto) 1.3 % (0.0-4.0); Hematocrit 42.1 % (39.0-51.0); Lymph % (Auto) 27.4 % (9.0-44.0); Mean Corpuscular HGB Conc 34.7 % (32.0-36.0); Mean Corpuscular Hemoglobin 33.9 pg (27.0-34.0); Mean Corpuscular Volume 97.9 fL (80.0-100.0); Mean Platelet Volume 7.7 fL (7.0-11.0); Mono # (Auto) 0.7 th/mm3 (0.0-0.9); Mono % (Auto) 6.5 % (0.0-8.0); Neut # (Auto) 7.2 th/mm3 (1.8-7.7); Neut % (Auto) 63.9 % (16.0-70.0); Platelet Count 165 th/mm3 (150-450); Red Cell Distribution Width 12.4 % (11.6-17.2); White Blood Count 11.1 th/mm3 (4.0-11.0)
[2018-08-01 07:21] LABS: Potassium 3.8 meq/L (3.5-5.1)
[2018-08-01 07:22] LABS: Hemoglobin 14.6 gm/dL (13.0-17.0)
[2018-08-01 07:25] LABS: Calcium 8.2 mg/dL (8.5-10.1); Magnesium 1.6 mg/dL (1.5-2.5)
[2018-08-01] MEDS: Metoprolol Tartrate 25 MG Tablet PO SCH (08:10)
--- NOTE | 2018-08-01 10:29 | ECHRPT ---
Indication: CVA/TIA CONCLUSIONS The left ventricular systolic function is normal with an estimated ejection fraction in the range of 60-65%. Wall thickness is normal. Normal left ventricular size. [id number] mitral valve regurgitation. There is mild tricuspid valve regurgitation. The estimated pulmonary arterial pressure is 31 mmHg. BP: / HR: Rhythm: Sinus MEASUREMENTS (Male / Female) Normal Values Technical Quality:Good 2D ECHO LV Diastolic Diameter PLAX 4.2 cm 4.2 - 5.9 / 3.9 - 5.3 cm LV Systolic Diameter PLAX 3.0 cm IVS Diastolic Thickness 1.1 cm 0.6 - 1.0 / 0.6 - 0.9 cm LVPW Diastolic Thickness 1.1 cm 0.6 - 1.0 / 0.6 - 0.9 cm LV Relative Wall Thickness 0.5 LVOT Diameter 1.9 cm M-MODE Aortic Root Diameter MM 2.6 cm LA Systolic Diameter MM 3.2 cm LA Ao Ratio MM 1.2 AV Cusp Separation MM 1.8 cm DOPPLER AV Peak Velocity 150.0 cm/s AV Peak Gradient 9.0 mmHg LVOT Peak Velocity 116.0 cm/s LVOT Peak Gradient 5.4 mmHg AV Area Cont Eq pk 2.2 cm MR Peak Velocity 278.0 cm/s MR Peak Gradient 30.9 mmHg Mitral E Point Velocity 102.0 cm/s Mitral A Point Velocity 64.7 cm/s Mitral E to A Ratio 1.6 LV E' Lateral Velocity 11.8 cm/s Mitral E to LV E' Lateral Ratio 8.6 LV E' Septal Velocity 4.6 cm/s Mitral E to LV E' Septal Ratio 22.3 TR Peak Velocity 229.0 cm/s TR Peak Gradient 21.0 mmHg Right Atrial Pressure 10.0 mmHg Pulmonary Artery Systolic Pressu 31.0 mmHg Right Ventricular Systolic Press 31.0 mmHg PV Peak Velocity 118.0 cm/s PV Peak Gradient 5.6 mmHg FINDINGS LEFT VENTRICLE The left ventricular systolic function is normal with an estimated ejection fraction in the range of 60-65%. Wall thickness is normal. Normal left ventricular size. RIGHT VENTRICLE Normal right ventricular size and systolic function. LEFT ATRIUM The left atrial size is normal. RIGHT ATRIUM The right atrial size is normal. ATRIAL SEPTUM Normal atrial septal thickness without atrial level shunting by limited color doppler interrogation. AORTA The aortic root and proximal ascending aorta are normal in size on limited imaging. MITRAL VALVE [id number] mitral valve regurgitation. AORTIC VALVE Trileaflet aortic valve. No aortic valve stenosis or regurgitation. TRICUSPID VALVE There is mild tricuspid valve regurgitation. The estimated pulmonary arterial pressure is 31 mmHg. PULMONARY VALVE No pulmonary valve regurgitation or stenosis. VESSELS The inferior vena cava is normal in size. PERICARDIUM No pericardial effusion. Delfino Walker MD (Electronically Signed) Final Date:01 August 2018 10:28
--- NOTE | 2018-08-01 12:05 | P.PNIM ---
Subjective Interval history: Patient is laying down comfortably in bed. He does not have any complaints of headache, no palpitations, no chest pain. He says that he feels well today. Physical Exam Vital signs: Vital Signs 07/31/18 12:09 07/31/18 12:12 07/31/18 12:20 Temperature 98.5 F Pulse Rate 98 H 98 H Respiratory Rate 18 Blood Pressure 165/100 H Pulse Oximetry 95 95 07/31/18 14:40 07/31/18 16:00 07/31/18 16:07 Temperature 98.1 F Pulse Rate 82 77 72 Respiratory Rate 18 18 Blood Pressure 149/89 H 128/81 Pulse Oximetry 96 96 07/31/18 19:50 07/31/18 20:00 08/01/18 00:00 Temperature 99.0 F 98.4 F Pulse Rate 80 62 Respiratory Rate 18 18 Blood Pressure 126/81 132/74 Pulse Oximetry 96 98 95 08/01/18 04:00 08/01/18 08:00 08/01/18 08:59 Temperature 98.6 F 97.8 F Pulse Rate 60 64 63 Respiratory Rate 18 15 Blood Pressure 128/76 125/79 Pulse Oximetry 96 95 08/01/18 11:49 Temperature Pulse Rate Respiratory Rate Blood Pressure Pulse Oximetry 95 Intake & Output 07/31/18 08/01/18 08/01/18 18:59 06:59 18:59 Intake Total 1000 / 1000 1000 / 1000 Balance 1000 / 1000 1000 / 1000 Weight 84 kg 86.9 kg Intake: IV 1000 / 1000 1000 / 1000 NS Inj 1,000 ML @ 100 mls/hr IV 1000 / 1000 .CONT .Q10H ALE Rx#:[id number] NS Inj 1,000 ML @ Wide Open IV. 1000 / 1000 SIG BOLUS ONE Rx#:[id number] Other: # Voids 1 6 # Bowel Movements 0 Narrative: General patient in no acute distress HEENT extraocular movements are intact, clear oropharyngeal mucosa, no JVD Cardiovascular S1-S2 audible, no murmurs rubs or gallops, no chest pain Respiratory clear to auscultation bilaterally Abdomen soft, nontender, nondistended, normal bowel sounds Extremities no edema 2+ distal pulses in bilateral upper and lower extremities Neuro patient moves all 4 extremities, strength is intact, sensation is intact bilateral upper and lower extremities. Cerebellar signs are intact. No neurological deficits noted on my physical examination. Results - Labs CBC & Chem 7: 08/01/18 06:38 08/01/18 06:38 Laboratory Results - last 24 hr 07/31/18 07/31/18 07/31/18 12:25 12:25 13:07 CBC w Diff Auto diff final WBC 9.3 RBC 5.08 Hgb 17.0 Hct 49.8 MCV 98.0 MCH 33.5 MCHC 34.1 RDW 12.2 Plt Count 213 MPV 7.6 Neut % (Auto) 64.2 Lymph % (Auto) 26.7 [place] % (Auto) 5.3 Eos % (Auto) 3.0 Baso % (Auto) 0.8 Neut # (Auto) 5.9 Lymph # (Auto) 2.5 [place] # (Auto) 0.5 Eos # (Auto) 0.3 Baso # (Auto) 0.1 WBC Differential . Differential Comment . Sodium 142 Potassium 3.9 Chloride 106 Carbon Dioxide 25.2 Anion Gap 11 BUN 12 Creatinine 1.40 H Estimated GFR 53 L Random Glucose 136 H Calcium 8.9 Magnesium 1.7 Total Creatine Kinase 109 Troponin I Less than 0.02 L Urine Opiates Screen Neg Ur Barbiturates Screen Neg Ur Amphetamines Screen Neg U Benzodiazepines Scrn Neg Urine Cocaine Screen Neg U Cannabinoids Screen Pos H Serum Alcohol Less than 3 08/01/18 08/01/18 06:38 06:38 CBC w Diff Auto diff final WBC 11.1 H RBC 4.30 L Hgb 14.6 D Hct 42.1 MCV 97.9 MCH 33.9 MCHC 34.7 RDW 12.4 Plt Count 165 MPV 7.7 Neut % (Auto) 63.9 Lymph % (Auto) 27.4 [place] % (Auto) 6.5 Eos % (Auto) 1.3 Baso % (Auto) 0.9 Neut # (Auto) 7.2 Lymph # (Auto) 3.0 [place] # (Auto) 0.7 Eos # (Auto) 0.1 Baso # (Auto) 0.1 WBC Differential . Differential Comment . Sodium 144 Potassium 3.8 Chloride 110 H Carbon Dioxide 27.0 Anion Gap 7 BUN 11 Creatinine 1.10 Estimated GFR 69 L Random Glucose 86 Calcium 8.2 L Magnesium 1.6 Total Creatine Kinase Troponin I Urine Opiates Screen Ur Barbiturates Screen Ur Amphetamines Screen U Benzodiazepines Scrn Urine Cocaine Screen U Cannabinoids Screen Serum Alcohol - Imaging Impressions Carotid Doppler Study 07/31/18 00:00 CONCLUSION: No evidence of flow-limiting carotid stenosis. Head CT 07/31/18 12:12 CONCLUSION: 1. 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 Negative for acute process . Assessment and Plan - Plan This patient is a 57-year-old male with seizure disorder currently not on any medications, hypertension, dyslipidemia. Patient also has a history of 2 DVTs as per documentation and is currently on Eliquis. He says that he takes 3 medications daily including his beta-steph, statin, and Eliquis. He was brought into the emergency department today after his mother found him down in his room. She was not sure if he had a seizure or possibly syncopal event. According to the patient's nephew he had lost consciousness and woke up after about a minute. The patient does not recall the episode. He denies any chest pain, no palpitations, no shortness of breath prior to the episode. He says his last seizure was approximately 1 year ago. The patient is a very poor historian, most of the history was given to me by the patient's nephew who is at bedside with the patient. 1. Possible syncopal episode, concern for possible seizure. Patient presented with the findings mentioned above. A CT scan of the head was done which showed areas of porencephaly. No other acute findings, no bleed. It is unclear if the patient had a seizure at home. There is no clear documentation of seizure-like activity, and the patient does not remember the episode. An EKG was done which shows slight OH prolongation. No significant events noted on telemetry. Troponin negative, An EEG has been ordered. Neurology consulted to evaluate the patient as the patient has not been on antiseizure medications for nearly a year. We will follow-up with neurology after there evaluation. Carotid ultrasound is negative. No significant normality's on 2D echocardiogram. 2. Acute kidney injury The patient's elevated serum creatinine has now normalized after the initiation of IV fluids. 3. Hypertension Patient will be continued on metoprolol. Blood pressure currently under control. 4. Dyslipidemia Continue statin 5. History of DVTs. Continue Eliquis. No signs of bleeding, CT scan of the head is negative for any acute bleed. . DVT prophylaxis, patient is on Eliquis.
[2018-08-01] MEDS: amLODIPine 5 MG Tablet PO SCH (12:42)
--- NOTE | 2018-08-01 12:47 | P.CONNEU ---
History of Present Illness Service: Neurology Primary Care Provider: No Primary Care Physician Chief Complaint: Possible seizure History of Present Illness: 57-year-old male admitted for possible seizure activity altered mental status. 2003 MRI brain [facility] showing bifrontal and occipital strokes. Is diagnosed with factor V Leyden mutation. History of DVTs. On anticoagulation. Apparently had a seizure at that time post stroke. Lives with his mom is independent and does work. He states he goes to [facility] for care but has not been taking any seizure medications. Review of Systems All other systems reviewed negative except as stated in HPI PMFSH - History History Provided By: Patient - Medical History Medical History: Medical History (Last Updated 07/31/18 @ 14:58 by Neda Middleton RN) High cholesterol History of DVT of lower extremity Hypertension Seizure disorder - Tobacco History Second Hand Smoke Exposure: No Tobacco Use In Past 30 Days: No Smoking Status: Former smoker Tobacco Type: Cigarettes - Alcohol History How Often Do You Have a Drink Containing Alcohol: 2 to 3 times a week - Substance Use History Substance History: No History of Abuse - Travel History Recent Travel in the [place] Within the Last 8 Weeks: No Recent Travel Out of the Country Within the Last 8 Weeks: No - Immunization History Tetanus Immunization: Unsure Medications and Allergies Active Medications: Active Medications Amlodipine Besylate (Norvasc) 5 mg PO DAILY [facility] Last Admin: 08/01/18 12:42 Dose: 5 mg Apixaban (Eliquis) 2.5 mg PO BID [facility] Last Admin: 08/01/18 08:10 Dose: 2.5 mg Atorvastatin Calcium (Lipitor) 20 mg PO HS [facility] Last Admin: 07/31/18 20:35 Dose: 20 mg Sodium Chloride (Ns Inj) 1,000 mls @ 100 mls/hr IV.CONT .Q10H [facility] Last Admin: 08/01/18 12:43 Dose: 100 mls/hr Sodium Chloride (Ns Flush) 2 ml IV.FLUSH PRN PRN PRN Reason: FLUSH AFTER USING IV ACCESS Last Admin: 07/31/18 13:28 Dose: 2 ml Allergies Allergy/AdvReac Type Severity Reaction Status Date / Time No Known Allergies Allergy Verified 07/31/18 13:10 Home Medications Medication Instructions Recorded Confirmed Type apixaban [Eliquis] 2.5 mg PO BID 11/16/18 11/16/18 History atorvastatin 20 mg PO DAILY 07/31/18 07/31/18 History lisinopril 10 mg PO DAILY 07/31/18 07/31/18 History metoprolol tartrate 25 mg PO BID 07/31/18 07/31/18 History Exam Vital signs: Vital Signs 07/31/18 14:40 07/31/18 16:00 07/31/18 16:07 Temperature 98.1 F Pulse Rate 82 77 72 Respiratory Rate 18 18 Blood Pressure 149/89 H 128/81 Pulse Oximetry 96 96 07/31/18 19:50 07/31/18 20:00 08/01/18 00:00 Temperature 99.0 F 98.4 F Pulse Rate 80 62 Respiratory Rate 18 18 Blood Pressure 126/81 132/74 Pulse Oximetry 96 98 95 08/01/18 04:00 08/01/18 08:00 08/01/18 08:59 Temperature 98.6 F 97.8 F Pulse Rate 60 64 63 Respiratory Rate 18 15 Blood Pressure 128/76 125/79 Pulse Oximetry 96 95 08/01/18 11:49 Temperature Pulse Rate Respiratory Rate Blood Pressure Pulse Oximetry 95 Intake & Output 07/31/18 08/01/18 08/01/18 18:59 06:59 18:59 Intake Total 1000 / 1000 1000 / 1000 1000 / 1000 Balance 1000 / 1000 1000 / 1000 1000 / 1000 Weight 84 kg 86.9 kg Intake: IV 1000 / 1000 1000 / 1000 1000 / 1000 NS Inj 1,000 ML @ 100 mls/hr IV 1000 / 1000 1000 / 1000 .CONT .Q10H ALE Rx#:[id number] NS Inj 1,000 ML @ Wide Open IV. 1000 / 1000 SIG BOLUS ONE Rx#:[id number] Other: # Voids 1 6 # Bowel Movements 0 Narrative: Awake alert oriented 2-3. Poor historian. Pleasant, articulate. Just on his MRI completed seen in the MRI station slightly reduced right curvilinear homonymous hemianopsia, brisk reflexes able raise all 4 extremity gravity gait not assessed secondary to fall risk - Constitutional no acute distress - Routine HEENT Exam Head: Present: normocephalic Eye: Present: EOMI Results - Labs CBC & Chem 7: 08/01/18 06:38 08/01/18 06:38 Labs: Laboratory Results - last 24 hr 07/31/18 07/31/1807/31/18 12:25 12:25 13:07 CBC w Diff Auto diff final WBC 9.3 RBC 5.08 Hgb 17.0 Hct 49.8 MCV 98.0 MCH 33.5 MCHC 34.1 RDW 12.2 Plt Count 213 MPV 7.6 Neut % (Auto) 64.2 Lymph % (Auto) 26.7 [place] % (Auto) 5.3 Eos % (Auto) 3.0 Baso % (Auto) 0.8 Neut # (Auto) 5.9 Lymph # (Auto) 2.5 [place] # (Auto) 0.5 Eos # (Auto) 0.3 Baso # (Auto) 0.1 WBC Differential . Differential Comment . Sodium 142 Potassium 3.9 Chloride 106 Carbon Dioxide 25.2 Anion Gap 11 BUN 12 Creatinine 1.40 H Estimated GFR 53 L Random Glucose 136 H Calcium 8.9 Magnesium 1.7 Total Creatine Kinase 109 Troponin I Less than 0.02 L Urine Opiates Screen Neg Ur Barbiturates Screen Neg Ur Amphetamines Screen Neg U Benzodiazepines Scrn Neg Urine Cocaine Screen Neg U Cannabinoids Screen Pos H Serum Alcohol Less than 3 08/01/18 08/01/18 06:38 06:38 CBC w Diff Auto diff final WBC 11.1 H RBC 4.30 L Hgb 14.6 D Hct 42.1 MCV 97.9 MCH 33.9 MCHC 34.7 RDW 12.4 Plt Count 165 MPV 7.7 Neut % (Auto) 63.9 Lymph % (Auto) 27.4 [place] % (Auto) 6.5 Eos % (Auto) 1.3 Baso % (Auto) 0.9 Neut # (Auto) 7.2 Lymph # (Auto) 3.0 [place] # (Auto) 0.7 Eos # (Auto) 0.1 Baso # (Auto) 0.1 WBC Differential . Differential Comment . Sodium 144 Potassium 3.8 Chloride 110 H Carbon Dioxide 27.0 Anion Gap 7 BUN 11 Creatinine 1.10 Estimated GFR 69 L Random Glucose 86 Calcium 8.2 L Magnesium 1.6 Total Creatine Kinase Troponin I Urine Opiates Screen Ur Barbiturates Screen Ur Amphetamines Screen U Benzodiazepines Scrn Urine Cocaine Screen U Cannabinoids Screen Serum Alcohol - Imaging Impressions Carotid Doppler Study 07/31/18 00:00 CONCLUSION: No evidence of flow-limiting carotid stenosis. Head CT 07/31/18 12:12 CONCLUSION: 1. 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 Negative for acute process . Review/Management - Diagnosis (1) Seizure Code(s): R56.9 - Unspecified convulsions Status: Acute Current Visit: Yes (2) Factor V Leiden mutation Code(s): D68.51 - Activated protein C resistance Status: Acute Current Visit : Yes (3) Chronic arterial ischemic stroke, multifocal, anterior circulation Code(s): I69.30 - Unspecified sequelae of cerebral infarction Status: Acute Current Visit: Yes - Review/Management Plan: History of seizures occurring when he had a stroke in 2003 which were embolic strokes and significant occurring in the bifrontal region left occipital region. 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 Behavioral modification and risk factor reduction. Weight loss, blood pressure control, blood sugar control, lipid control. Exercise
--- NOTE | 2018-08-01 13:32 | MR ---
EXAM DATE: 08/01/2018 1:21 PM EST AGE/SEX: 57 years / Male INDICATIONS: CVA. CLINICAL DATA: This is the patient's initial encounter. Patient reports that signs and symptoms have been present for 1 day and indicates a pain score of 0/10. MEDICAL/SURGICAL HISTORY: Seizures. Hypertension. Hypercholesterolemia. None. COMPARISON: [facility] [place]/O [place], 08/21/2017. . TECHNIQUE: Multiplanar, multisequence examination of the brain was performed without contrast. FINDINGS: Cerebrum: Bifrontal encephalomalacia (left more extensive than right) is noted consistent with old b ilateral frontal infarcts. Bilateral parieto-occipital infarcts (left slightly more extensive than ri ght) are also noted. Old right medial temporal infarct is also noted. There is no acute infarct, acut e hemorrhage, midline shift or extra-axial fluid collections. White Matter: Minimal periventricular and subcortical white matter small vessel ischemic changes are noted. Posterior Fossa: The cerebellum and brainstem are intact. The 4th ventricle is midline. The cerebel lopontine angle is unremarkable. The cerebellar tonsils are normal in position. Diffusion Imaging: No focal areas of restricted diffusion are seen. No evidence of acute infarction . Extracranial: The visualized portions of the orbits and paranasal sinuses are unremarkable. CONCLUSION: 1. Bifrontal encephalomalacia (left more extensive than right) is noted consistent with old bilatera l frontal infarcts. Bilateral parieto-occipital infarcts (left slightly more extensive than right) ar e also noted. Old right medial temporal infarct is also noted. 2. No acute infarct, acute hemorrhage, midline shift or extra-axial fluid collections. 3. Minimal periventricular and subcortical white matter small vessel ischemic changes bilaterally. Electronically signed by: Yousif Curry MD 08/01/2018 1:30 PM EST
--- NOTE | 2018-08-01 14:27 | ECG ---
Date Performed: 07/31/2018 Time Performed: 15:13:52 PTAGE: 57 years EKG: Sinus rhythm WITH FIRST DEGREE AV BLOCK LOW QRS VOLTAGE IN PRECORDIAL LEADS POSSIBLE RIGHT VENTRICULAR CONDUCTION DELAY ABNORMAL ECG PREVIOUS TRACING : 08/21/2017 23.20 Compared to previous tracing, heart rate has lsowed somewha t . Otherwise no signiafcant serial change DOCTOR: Nima Fraga Interpretating Date/Time 08/01/2018 14:26:36
[2018-08-01] MEDS: levETIRAcetam 250 MG Tablet PO SCH ×2 (15:26→22:07)
--- NOTE | 2018-08-01 20:56 | MG ---
cc: García Vincent MD ELECTROENCEPHALOGRAM RECORD NUMBER: [id number]. DESCRIPTION: Low-amplitude EEG, 5-10 microvolts, limited driving photic stimulation, appear to be in sleep state with spindles, low-amplitude delta, beta frequencies. Background increment up to 5-7 Hz giving arousal. Reasonable EEG variability reactivity. Single lead EKG showing sinus rhythm. INTERPRETATION: Mild encephalopathy in sleep state with depressed cerebral amplitude. Clinical correlation. García Vincent MD MG/ts , 08:27 PM , 08:32 PM
[2018-08-02] MEDS: levETIRAcetam 250 MG Tablet PO SCH (08:52)
[2018-08-02] MEDS: Sod Chloride 0.9% Inj 1,000 ML IV.CONT SCH (08:52)
[2018-08-02] MEDS: amLODIPine 5 MG Tablet PO SCH (08:54)
--- NOTE | 2018-08-02 09:26 | P.DS ---
Date of admission: 07/31/18 14:22 Primary care physician: No Primary Care Physician Brief History from admission: This patient is a 57-year-old male with seizure disorder currently not on any medications, hypertension, dyslipidemia. Patient also has a history of 2 DVTs as per documentation and is currently on Eliquis. He says that he takes 3 medications daily including his beta-steph, statin, and Eliquis. He was brought into the emergency department today after his mother found him down in his room. She was not sure if he had a seizure or possibly syncopal event. According to the patient's nephew he had lost consciousness and woke up after about a minute. The patient does not recall the episode. He denies any chest pain, no palpitations, no shortness of breath prior to the episode. He says his last seizure was approximately 1 year ago. The patient is a very poor historian, most of the history was given to me by the patient's nephew who is at bedside with the patient. 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 Surgical history patient denies any history of surgeries. Family history no history of seizure disorder in the family. Hypertension runs in the family Social history patient has extensive marijuana smoking history. He also has a history of tobacco smoking. Denies any history of drug use. Drinks alcohol socially. DS: Medications - Discharge Medications Prescriptions: amlodipine [Norvasc] 5 mg PO DAILY #30 tab apixaban [Eliquis] 2.5 mg PO BID #60 tab atorvastatin 20 mg PO DAILY #30 tab levetiracetam [Keppra] 750 mg PO BID #120 tab DS: Summary Hospital Course: This patient is a 57-year-old male with seizure disorder currently not on any medications, hypertension, dyslipidemia. History of Factor V leiden, Patient also has a history of 2 DVTs as per documentation and is currently on Eliquis. He says that he takes 3 medications daily including his beta-steph, statin, and Eliquis. He was brought into the emergency department today after his mother found him down in his room. She was not sure if he had a seizure or possibly syncopal event. According to the patient's nephew he had lost consciousness and woke up after about a minute. The patient does not recall the episode. He denies any chest pain, no palpitations, no shortness of breath prior to the episode. He says his last seizure was approximately 1 year ago. The patient is a very poor historian, most of the history was given to me by the patient's nephew who is at bedside with the patient. 1. Seizure disorder Patient presented with the findings mentioned above. A CT scan of the head was done which showed areas of porencephaly. No other acute findings, no bleed. It is unclear if the patient had a seizure at home, but we believe this was likely a seizure. Patient has been off of his seizure meds for nearly a year. Patient does not remember the episode very well and is a poor historian. An MRI of the brain was done which showed no acute infarct, old infarcts were noted as well as bifrontal encephalomalacia the left more extensive than the right. Neurology was following the patient. Recommend agents from neurology are to continue Keppra 750 mg p.o. twice daily. Scripts were given to the patient prior to his discharge. He will also be continued on anticoagulation given his history of DVTs and factor V Leiden mutation. No driving, operating any heavy machinery or dangerous machinery, no swimming alone for at least 6 months of being seizure-free. These instructions were given to the patient in detail. The importance of medication compliance was also discussed with the patient. He will be discharged home today. Patient is ambulatory without any difficulties ambulating. 2. Bradycardia 3. Hypertension An EKG was done which showed a slight MD prolongation. He was monitored on telemetry which showed heart rate in the low 50s and high 40s while he was on metoprolol. The patient was asymptomatic throughout the hospitalization. Metoprolol was stopped and now monitoring him on telemetry shows a heart rate in the 60s. Metoprolol be stopped on discharge. Troponins were negative. Carotid ultrasounds and 2D echocardiogram did not show any significant abnormalities. Norvasc will be started to the patient's medication regimen on discharge. His blood pressure is currently under control with Norvasc while in house. 3. Acute kidney injury The patient's elevated serum creatinine has now normalized after the initiation of IV fluids. 4. Dyslipidemia Continue statin. Scripts given to the patient. 5. History of DVTs, factor V Leiden mutation as per dog mentation. Continue Eliquis. No signs of bleeding, CT scan of the head is negative for any acute bleed. - Time Spent with Patient Total time spent providing and/or coordinating discharge services: Greater than 30 minutes - Quality: VTE Deep Vein Thrombosis/Pulmonary Embolism Present on Admission: No Exam Vital signs: Vital Signs 08/01/18 11:49 08/01/18 12:00 08/01/18 16:00 Temperature 97.9 F 97.8 F Pulse Rate 58 L 65 Respiratory Rate 12 14 Blood Pressure 124/76 132/62 Pulse Oximetry 95 95 91 L 08/01/18 20:00 08/02/18 00:00 08/02/18 04:00 Temperature 97.5 F L 98.2 F 97.3 F L Pulse Rate 52 L 67 60 Respiratory Rate 18 18 18 Blood Pressure 122/78 124/79 134/76 Pulse Oximetry 96 96 97 Intake & Output 08/01/18 08/02/18 08/02/18 18:59 06:59 18:59 Intake Total 1000 / 1000 350 / 350 650 / 650 Balance 1000 / 1000 350 / 350 650 / 650 Weight 87.3 kg Intake: IV 1000 / 1000 350 / 350 650 / 650 NS Inj 1,000 ML @ 100 mls/hr IV 1000 / 1000 350 / 350 650 / 650 .CONT .Q10H ALE Rx#:[id number] Other: # Voids 3 5 Narrative: General patient in no acute distress HEENT extraocular movements are intact, clear oropharyngeal mucosa, no JVD Cardiovascular S1-S2 audible, no murmurs rubs or gallops, no chest pain Respiratory clear to auscultation bilaterally Abdomen soft, nontender, nondistended, normal bowel sounds Extremities no edema 2+ distal pulses in bilateral upper and lower extremities Neuro patient moves all 4 extremities, strength is intact, sensation is intact bilateral upper and lower extremities. Cerebellar signs are intact. No neurological deficits noted on my physical examination. Results Procedures completed during hospitalization: None - Impressions ITS Impressions Carotid Doppler Study 07/31/18 00:00 CONCLUSION: No evidence of flow-limiting carotid stenosis. Head CT 07/31/18 12:12 CONCLUSION: 1. 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 Negative for acute process . Head MRI 08/01/18 00:00 CONCLUSION: 1. Bifrontal encephalomalacia (left more extensive than right) is noted consistent with old bilateral frontal infarcts. Bilateral parieto-occipital infarcts (left slightly more extensive than right) are also noted. Old right medial temporal infarct is also noted. 2. No acute infarct, acute hemorrhage, midline shift or extra-axial fluid collections. 3. Minimal periventricular and subcortical white matter small vessel ischemic changes bilaterally. Discharge Plan - Discharge Disposition Patient Disposition: 01 Discharge Home - Discharge Condition Condition: Stable - Discharge Order Discharge Orders: Discharge Order (Routine); Ordered 08/02/18 Ordered By: Ida Macario Neurology Clear for Discharge (Routine); Ordered 08/01/18 Ordered By: García Vincent - Physicians Team Primary Care Provider: Primary Care Tee,Kristen Attending Provider: Ida Macario Other Providers: García Vincent MD
== END 2018-08-02 10:15 | disposition home or self-care (01) ==
LOC: PHEDA 12:06 → PHED 12:06 → PHEDA 15:20 → PH3 15:38
PROVIDERS: ADMIT Hospitalist; ATTEND Hospitalist